=== PATIENT | male | born 1975 | race Caucasian/White ===

== ENCOUNTER 2016-07-14 17:06 | Emergency (ER) | payer SELFPAY ==
[2016-07-14 17:14] VITALS: BP 158/93; PULSE 88; RESP 18; TEMP 98.8; O2SAT 96
--- NOTE | 2016-07-14 17:20 | EDPHY ---
H & P Stated Complaint: Facial swelling x 2 days; states "it's my gums" and needs antibx Time Seen by Provider: 07/14/16 17:20 - Personal History Current Tetanus Diphtheria and Acellular Pertussis (TDAP): No - Medical/Surgical History Other PMH: recurrent dental infections - Social History Smoking Status: Current every day smoker Constitutional: Initial Vital Signs Temperature (C) 37.1 C 07/14/16 17:11 Heart Rate 88 07/14/16 17:11 Respiratory Rate 18 07/14/16 17:11 Blood Pressure 158/93 H 07/14/16 17:11 O2 Sat (%) 96 07/14/16 17:11 O2 Delivery Mode Room Air Allergies/Adverse Reactions: No Known Allergies Allergy (Unverified 07/14/16 17:11) Home Medications: Medication Instructions Recorded Cephalexin [Keflex (RX)] 500 mg PO QID #40 cap 07/14/16 HYDROcodone/APAP 10/325 [Bullock 1 - 2 each PO Q4-6PRN PRN #20 tab 07/14/16 10/325] Ibuprofen [Motrin] 800 mg PO Q8 #20 tab 07/14/16 Medical Decision Making ED Course/Re-evaluation: CHIEF COMPLAINT: Left cheek swelling. HISTORY OF PRESENT ILLNESS: The patient is a 40-year-old male who presents with 2 days of left cheek swelling. The area is tender and erythematous. He does have a history of facial abscess. He denies fever, chills, vomiting, or other complaints. REVIEW OF SYSTEMS: A 10 point review of systems was performed and is negative with the exception of the elements mentioned in the history of present illness. PHYSICAL EXAM: HR, BP, O2 Sat, RR. Temp noted General Appearance: Alert, well hydrated, appropriate, and non-toxic appearing. Head: Atraumatic without scalp tenderness or obvious injury Eyes: Pupils equal, round, reactive to light and accommodation, EOMI, no trauma , no injection. Ears: Clear bilaterally, no perforation, normal landmarks Nose: Atraumatic, no rhinorrhea, clear. Throat: There is no erythema or exudates, no lesions, normal tonsils, mucus membranes moist. Neck: Supple, 2+ carotid upstroke, nontender, no lymphadenopathy. Respiratory: No retractions, no distress, no wheezes, and no accessory muscle use. Lungs are clear to auscultation bilaterally. Cardiovascular: Regular rate and rhythm, no murmurs, rubs, or gallops. Bilateral carotid, radial, dorsalis pedis, and posterior tibial pulses intact. Good capillary refill all extremities. Gastrointestinal: Abdomen is soft, nontender, non-distended, no masses, no rebound, no guarding, no peritoneal signs. Musculoskeletal: Normal active ROM of all extremities, atraumatic. Neurological: Alert, appropriate, and interactive. The patient has normal DTRs and non-focal cranial nerves, motor, sensory, and cerebellar exam. Skin: No rashes, good turgor, no nodules on palpation. Past medical history: Facial abscesses. Past surgical history: Denies. Family history: N/A. Social history: Visiting from [place]. DIFFERENTIAL DIAGNOSIS: The differential diagnosis includes, but is not limited to: cellulitis, abscess , sepsis, severe sepsis, dental caries. MEDICAL DECISION MAKIN-year-old male presents with left facial abscess that began two days ago. This abscess is clearly related to a dental concern and he has a large amount of swelling in the upper left part of his mouth. He has no signs of systemic illness. I have started him on Keflex. We will refer him to dental clinics so he can set up a follow up appointment. He is comfortable with this plan. I have prescribed him Bullock. Departure - Departure Disposition: Home, Routine, Self-Care Clinical Impression: Facial abscess Condition: Good Instructions: Abscess (ED) Additional Instructions: Take Keflex as prescribed. You have been provided the telephone numbers of multiple dental offices you can call to set up an appointment. Return for any serious worsening of condition. Referrals: NONE *PRIMARY CARE P,. [Primary Care Provider] - As per Instructions [facility] [Outside] - As per Instructions [facility] [Outside] - As per Instructions Dental [facility] [Outside] - As per Instructions [facility] [Outside] - As per Instructions Dental [facility] [Outside] - As per Instructions Prescriptions: Cephalexin [Keflex (RX)] 500 mg PO QID #40 cap HYDROcodone/APAP 10/325 [Bullock 10/325] 1 - 2 each PO Q4-6PRN PRN #20 tab PRN Reason: Pain, Moderate Ibuprofen [Motrin] 800 mg PO Q8 #20 tab Report Scribed for: Morro Bowman Report Scribed by: Vlad Coon Date of Report: 07/14/16 Time of Report: 17:23
== END 2016-07-14 17:32 | disposition home or self-care (01) ==
DX: L02.01 Cutaneous abscess of face (principal); F17.200 Nicotine dependence, unspecified, uncomplicated